=== PATIENT | female | born 1970 | race Caucasian/White ===

== ENCOUNTER 2017-06-23 03:43 | Inpatient (IN) | payer OTHER ==
[~2017-06-23] VITALS: Ht 167.6 cm; Wt 110.0 kg
[2017-06-23 04:42] LABS: HEMATOCRIT 42.1 % (36.0-46.0); HEMOGLOBIN 14.6 G/DL (11.9-15.5); MCH 28.3 PG (29.0-34.0); MCHC 34.7 G/DL (30.0-36.0); MCV 81.6 FL (83-99); PLATELET COUNT 267 K/uL (156-360); RBC DIS.WIDTH-CV 13.5 % (11.8-14.6); RED BLOOD COUNT 5.16 M/uL (3.80-5.20); WHITE BLOOD COUNT 16.9 K/uL (4.1-10.2)
[2017-06-23 05:02] LABS: CHLORIDE 107 mEq/L (99-109); POTASSIUM 3.8 mEq/L (3.7-5.4); SODIUM 140 mEq/L (136-147)
[2017-06-23 05:05] LABS: GLUCOSE 101 mg/dL (70-99); TOTAL PROTEIN 7.4 g/dL (6.4-8.3)
[2017-06-23 05:07] LABS: TOTAL BILIRUBIN 0.4 mg/dL (0.0-1.0)
[2017-06-23 05:08] LABS: ALKALINE PHOSPHATASE 91 IU/L (3-129); CREATININE 0.7 mg/dL (0.6-1.3); GFR ESTIMATE (CALCULATED) > 59 mL/min/
[2017-06-23 05:09] LABS: UREA NITROGEN (BUN) 7 mg/dL (9-23)
[2017-06-23 05:10] LABS: AST (GOT) 26 IU/L (2-34)
[2017-06-23 05:11] LABS: ALT (GPT) 32 IU/L (3-49)
[2017-06-23 05:12] LABS: LIPASE 17 U/L (1.0-51.0)
[2017-06-23 05:17] LABS: QUANTITATIVE HCG < 4.0 MIU/ML
[2017-06-23 05:26] LABS: APPEARANCE CLOUDY ((CLEAR)); BILIRUBIN NEGATIVE; BLOOD NEGATIVE; COLOR YELLOW ((YELLOW)); GLUCOSE (STRIP) NEGATIVE; KETONES NEGATIVE; LEUKOCYTES TRACE; NITRITE NEGATIVE; PROTEIN (STRIP) NEGATIVE; SPECIFIC GRAVITY 1.011 (1.000-1.030); UROBILINOGEN 0.2 MG/DL (0.2-1.0)
[2017-06-23 05:55] LABS: BACTERIA 3+ /HPF; EPITHELIAL CELLS 2+ /HPF; MUCUS RARE /LPF; RED BLOOD CELLS NONE SEEN /HPF (0-5); UCUL ADDED? YES
[2017-06-23 09:20] VITALS: BP 128/79
[2017-06-23 15:35] VITALS: BP 132/79
[2017-06-23] MEDS ORDERED: TYLENOL325 M2 PO (15:58)
[2017-06-23] MEDS ORDERED: MOTRIN400 MG PO (15:59)
[2017-06-23] MEDS ORDERED: BETA TCP PO (16:04)
[2017-06-23 23:50] VITALS: BP 123/60
[2017-06-24 05:38] LABS: BASOPHIL (%) 0.6 % (0-1); BASOPHIL COUNT 0.1 K/uL (0-0.1); EOSINOPHIL (%) 2.3 % (0-5); EOSINOPHIL COUNT 0.2 K/uL (0-0.3); IMMATURE GRANULOCYTE (%) 0.3 % (0.0-0.7); LYMPHOCYTE (%) 28.1 % (15-42); LYMPHOCYTE COUNT 2.5 K/uL (1.0-2.8); MCH 27.5 PG (29.0-34.0); MCHC 32.5 G/DL (30.0-36.0); MCV 84.7 FL (83-99); MONOCYTE (%) 7.6 % (3-12); MONOCYTE COUNT 0.7 K/uL (0-0.8); NEUTROPHIL (%) 61.1 % (45-76); NEUTROPHIL COUNT 5.3 K/uL (1.8-6.4); PLATELET COUNT 227 K/uL (156-360); RBC DIS.WIDTH-SD 43.4 % (39-53); RED BLOOD COUNT 4.72 M/uL (3.80-5.20); WHITE BLOOD COUNT 8.7 K/uL (4.1-10.2)
[2017-06-24 06:00] LABS: ALBUMIN 3.4 G/DL (3.2-4.8); ALKALINE PHOSPHATASE 65 IU/L (3-129); ALT (GPT) 26 IU/L (3-49); AST (GOT) 15 IU/L (2-34); CHLORIDE 109 MEQ/L (99-109); CREATININE 0.6 MG/DL (0.6-1.3); GFR ESTIMATE (CALCULATED) > 59 mL/min/; GLUCOSE 92 mg/dL (70-99); POTASSIUM 4.5 MEQ/L (3.7-5.4); SODIUM 143 MEQ/L (136-147); TOTAL BILIRUBIN 0.3 MG/DL (0.0-1.0); TOTAL PROTEIN 5.8 G/DL (6.4-8.3); UREA NITROGEN (BUN) 7 mg/dL (9-23)
[2017-06-24 07:16] VITALS: BP 132/75
[2017-06-24] MEDS ORDERED: CIPRO500 MG PO (12:42)
[2017-06-24] MEDS ORDERED: HYDROCODON-ACE1 EAC7 PO (12:42)
== END 2017-06-24 13:40 | disposition home or self-care (01) | DRG 700 ==
LOC: EME 03:43 → EDOF 07:03 → ENRESERV 07:11 → 5EAST 08:44
PROVIDERS: Family Medicine
DX: N28.89 Other specified disorders of kidney and ureter (principal); N39.0 Urinary tract infection, site not specified; N10 Acute pyelonephritis; K80.20 Calculus of gallbladder without cholecystitis without obstruction; N20.0 Calculus of kidney; K76.0 Fatty (change of) liver, not elsewhere classified; L40.9 Psoriasis, unspecified; F17.200 Nicotine dependence, unspecified, uncomplicated; I10 Essential (primary) hypertension; E66.9 Obesity, unspecified; Z68.39 Body mass index [BMI] 39.0-39.9, adult
CPT/HCPCS: 74177; 76705; 80053; 81003; 83605; 83690; 84702; 85025; 85027; 87040; 87086; 99281; 99285; J0696; J2405; J7030; S0028

== ENCOUNTER → 2017-07-12 | Outpatient (CLI) | payer OTHER ==
[~2017-07-12] MED LIST: BETA TCP PO; CIPRO500 MG PO; HYDROCODON-ACE1 EAC7 PO; MOTRIN400 MG PO; TYLENOL325 M2 PO
== END | disposition home or self-care (01) ==
LOC: CDC 08:12
DX: Z01.810 Encounter for preprocedural cardiovascular examination (principal); R94.31 Abnormal electrocardiogram [ECG] [EKG]
CPT/HCPCS: 93000